=== PATIENT | male | born 1980 | race Caucasian/White ===

== ENCOUNTER 2018-02-23 18:45 | Emergency (ER) | payer OTHER ==
--- NOTE | 2018-02-23 19:44 | ERPHSYRPT ---
- History of Present Illness Time Seen by Provider: 02/23/18 19:25 Source: patient Exam Limitations: no limitations Patient Subjective Stated Complaint: PT states "On saturday I punched a wall and there was a nail in it and I hit the nail. It just started to bruise and I think I might have broken it. I was trying to take care of it by myself." Triage Nursing Assessment: Pt alert and oriented X 3, skin pwd. Pt ambualtes with an upright steady gait, able to speak in clear full sentences. PT right hand has small laceration noted to the knuckle of the pinky finger as well as bruising on lateral aspect of hand. Physician History: 38-year-old white male arrives with complaint of a puncture wound and laceration overlying his right fifth metacarpal phalangeal joint, laceration overlying his right metacarpal phalangeal joint pain in his right hand symptoms for 2 days. Patient states he became angry and punched a wall apparently hit a nail. He states he put superglue on the laceration. He states he is having pain in his right hand. . Past medical history includes anxiety, depression. Past surgical history includes appendectomy Occurred: days ago (2 days ago) Method of Injury: direct blow (punched a wall hitting a nail) Quality: constant Severity of Pain-Max: moderate Severity of Pain-Current: mild Extremities Pain Location: hand: right (overlying right fifth mcp joint dorsally ) Associated Symptoms: other (Pain right hand, laceration right hand) Allergies/Adverse Reactions: No Known Drug Allergies Allergy (Verified 02/23/18 18:55) Hx Tetanus, Diphtheria Vaccination/Date Given: Yes Hx Influenza Vaccination/Date Given: No Hx Pneumococcal Vaccination/Date Given: No Immunizations Up to Date: Yes - Review of Systems Constitutional: No Fever, No Chills Eyes: No Symptoms Ears, Nose, & Throat: No Symptoms Respiratory: No Cough, No Dyspnea Cardiac: No Chest Pain, No Edema, No Syncope Abdominal/Gastrointestinal: No Abdominal Pain, No Nausea, No Vomiting, No Diarrhea Genitourinary Symptoms: No Dysuria Musculoskeletal: Other (right hand pain) Skin: Other (puncture wound overlying right metacarpal phalangeal joint #5, laceration right hand overlying right metacarpal phalangeal joint #5) Neurological: No Dizziness, No Focal Weakness, No Sensory Changes Psychological: No Symptoms Endocrine: No Symptoms All Other Systems: Reviewed and Negative - Past Medical History Pertinent Past Medical History: Yes Neurological History: No Pertinent History ENT History: No Pertinent History Cardiac History: No Pertinent History Respiratory History: No Pertinent History Endocrine Medical History: No Pertinent History Musculoskeletal History: No Pertinent History GI Medical History: No Pertinent History History: No Pertinent History Psycho-Social History: Anxiety, Depression Male Reproductive Disorders: No Pertinent History - Past Surgical History Past Surgical History: No Neuro Surgical History: No Pertinent History Cardiac: No Pertinent History Other Surgical History: appendectomy - Social History Smoking Status: Current every day smoker How long have you smoked: 20 years Exposure to second hand smoke: Yes Drug Use: none Patient Lives Alone: Yes - Nursing Vital Signs Nursing Vital Signs: Initial Vital Signs Temperature 98.8 F 02/23/18 18:50 Pulse Rate 87 02/23/18 18:50 Respiratory Rate 16 02/23/18 18:50 Blood Pressure 134/74 02/23/18 18:50 O2 Sat by Pulse Oximetry 98 02/23/18 18:50 Pain Scale Pain Intensity 0 - Physical Exam General Appearance: alert Eyes, Ears, Nose, Throat Exam: moist mucous membranes Neck Exam: non-tender, supple Cardiovascular/Respiratory Exam: chest non-tender, normal breath sounds, regular rate/rhythm, no respiratory distress Abdominal Exam: non-tender, No guarding Back Exam: normal inspection, No vertebral tenderness Shoulder Exam: normal inspection, non-tender, no evidence of injury, normal ROM Elbow/Forearm Exam: normal inspection, non-tender, no evidence of injury, normal ROM Wrist Exam: normal inspection, non-tender, no evidence of injury, normal ROM, No limited ROM Hand Exam: No normal inspection (Puncture wound overlying right fifth mcp joint #5 dorsally, also small flap laceration overlying right fifth MCP joint full range of motion right hand. Good capillary refill right fingers, sensation intact right fingers) DTR - Upper Extremity Exam: tricep (R): 2+, tricep (L): 2+ Neuro/Tendon Exam: normal sensation, normal motor functions Mental Status Exam: alert, oriented x 3, cooperative Skin Exam: other (puncture wound and 1.5 cm flap laceration overlying right dorsal 5th mcp joint) SpO2 Interpretation: normal (98%) SpO2: 98 Oxygen Delivery: Room Air - Course Nursing assessment & vital signs reviewed: Yes - Radiology Exams Right Hand X-ray Interpretation: Interpreted by me (no fractures or subluxation) Ordered Tests: Active Orders 24 hr Category Date Time Status Wound Care STAT Care 02/23/18 19:32 Active HAND (MINIMUM 3 VIEWS) Stat Exams 02/23/18 19:31 Taken Medication Summary Discontinued Medications Generic Name Dose Route Start Last Admin Trade Name Sarika PRN Reason Stop Dose Admin Amoxicillin/Clavulanate Potassium 500 mg 02/23/18 20:14 Augmentin 500-125 Tablet PO 02/23/18 20:15 STAT ONE - Progress Progress: improved Progress Note: 02/23/18 19:44 This is a 38-year-old white male he arrives with complaint of a puncture wound in the flap laceration overlying his right fifth dorsal MCP joint. Patient apparently punched a wall 2 days ago striking a nail he initially superglue D area he states today he was noticing that the area appear to be somewhat soft in the shower. On physical examination patient has mild edema to his right hand proximal to the right fifth MCP joint tenderness with palpation on the proximal right hand he has full range of motion to the right hand sensation is intact to all fingers there are good capillary refill to all fingers. Will go ahead and get an x-ray of the patient's right hand anticipate Augmentin. Do not plan on suturing the puncture wound closed Will have nurse apply Steri- Strip to the flap secondary to the age of the presentation of the wound. - Departure Time of Disposition: 20:17 Departure Disposition: Home Clinical Impression: laceration delayed presentation Puncture wound of right hand Qualifiers: Encounter type: initial encounter Foreign body presence: without foreign body Qualified Code(s): S61.431A - Puncture wound without foreign body of right hand , initial encounter Contusion of right hand Qualifiers: Encounter type: initial encounter Qualified Code(s): S60.221A - Contusion of right hand, initial encounter Condition: Fair Critical Care Time: No Referrals: LINDSEY REDD MD [Primary Care Provider] - Additional Instructions: Return home. Augmentin 500 mg orally 3 times a day for 10 days. Advil 2-3 tablets orally every 6 hours as needed for pain for up to 5 days. Follow-up with your family doctor. Return for acute distress or for severe symptoms. keep area clean and dry Prescriptions: Amox Tr/Potass Clav. 500 mg [Augmentin 500-125 Tablet] 1 tab PO TID #30 tablet
[2018-02-23] MEDS ORDERED: Augmentin 500-125 Tablet PO ONE (20:14)
[2018-02-23] MEDS ORDERED: Augmentin 500-125 Tablet ONE (20:38)
[2018-02-23 20:51] VITALS: BP 136/82; PULSE 78; O2SAT 99
--- NOTE | 2018-02-24 08:48 | XRAY ---
Indication: Pain following punching injury. Comparison: None 3 views of the right hand obtained. No bony, articular, or soft tissue abnormalities.
== END 2018-02-23 20:49 | disposition home or self-care (01) ==
LOC: ED 18:45
DX: S61.431A Puncture wound without foreign body of right hand, initial encounter (principal); S60.221A Contusion of right hand, initial encounter; W22.01XA Walked into wall, initial encounter; Y93.89 Activity, other specified
CPT/HCPCS: 73130; 99283; A9270-GY

== ENCOUNTER 2020-08-28 12:33 | Emergency (ER) | payer OTHER ==
--- NOTE | 2020-08-28 12:37 | ERPHSYRPT ---
- History of Present Illness Time Seen by Provider: 08/28/20 12:36 Source: patient Exam Limitations: no limitations Physician History: This is a 40-year-old white male who is under a lot of stress recently including a friend who committed suicide a few days ago. Patient is having trouble sleeping. In addition, patient found a right testicular mass this morning and he is concerned about cancer. He denies pain. He denies penile discharge. He has purposely been eating better and changing his lifestyle and has lost 30 pounds. His primary care physician is Dr. Green. Patient has had a vasectomy in the past with the use of metal "ball clamps". Patient has not felt the mass in the last 4 years since his vasectomy. Timing/Duration: today Modifying Factors: Improves With: nothing Associated Symptoms: denies symptoms Allergies/Adverse Reactions: No Known Drug Allergies Allergy (Verified 08/28/20 12:46) Hx Tetanus, Diphtheria Vaccination/Date Given: Yes Hx Influenza Vaccination/Date Given: No Hx Pneumococcal Vaccination/Date Given: No Travel Risk - International Travel Have you traveled outside of the country in past 3 weeks: No - Coronavirus Screening Are you exhibiting any of the following symptoms?: No Close contact with a COVID-19 positive Pt in past 14-21 Days: No - Review of Systems Constitutional: No Symptoms Eyes: No Symptoms Ears, Nose, & Throat: No Symptoms Respiratory: No Symptoms Cardiac: No Symptoms Abdominal/Gastrointestinal: No Symptoms Genitourinary Symptoms: Other (Right testicular mass) Musculoskeletal: No Symptoms Skin: No Symptoms Neurological: No Symptoms Psychological: No Symptoms Endocrine: No Symptoms Hematologic/Lymphatic: No Symptoms Immunological/Allergic: No Symptoms All Other Systems: Reviewed and Negative - Past Medical History Pertinent Past Medical History: Yes Neurological History: No Pertinent History ENT History: No Pertinent History Cardiac History: No Pertinent History Respiratory History: No Pertinent History Endocrine Medical History: No Pertinent History Musculoskeletal History: No Pertinent History GI Medical History: No Pertinent History History: No Pertinent History Psycho-Social History: Anxiety, Depression Male Reproductive Disorders: No Pertinent History - Past Surgical History Past Surgical History: No Neuro Surgical History: No Pertinent History Cardiac: No Pertinent History Other Surgical History: appendectomy - Social History Smoking Status: Current every day smoker How long have you smoked: 20 years Exposure to second hand smoke: Yes Drug Use: none Patient Lives Alone: Yes - Nursing Vital Signs Nursing Vital Signs: Initial Vital Signs Temperature 98.3 F 08/28/20 12:36 Pulse Rate 95 H 08/28/20 12:36 Respiratory Rate 18 08/28/20 12:36 Blood Pressure 171/88 08/28/20 12:36 O2 Sat by Pulse Oximetry 98 08/28/20 12:36 Pain Scale Pain Intensity 0 - Physical Exam General Appearance: no apparent distress, alert, anxiety Eye Exam: PERRL/EOMI, eyes nml inspection Ears, Nose, Throat Exam: normal ENT inspection, moist mucous membranes Neck Exam: normal inspection, non-tender, supple, full range of motion Respiratory Exam: airway intact, No chest tenderness, No respiratory distress Cardiovascular Exam: regular rate/rhythm, normal heart sounds, normal peripheral pulses Gastrointestinal/Abdomen Exam: No tenderness Male Genitalia Exam: other (Right scrotal mass. Appears to be separate than the actual testicle. 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 Be there approximately 10 to 15 minutes prior to your appointment time at 7 AM or earlier if instructed to do so. Call Dr. Green's office at 9 AM and let them know that you have a right testicular mass and an ultrasound has been performed. In addition, discussed with them your other chronic health issue concerns including cardiac, blood pressure, anxiety and insomnia issues. Prescriptions: Lorazepam 0.5 mg [Ativan 0.5 MG] 0.5 mg PO QHS PRN #3 tablet MDD 1 PRN Reason: Insomnia
[2020-08-28 13:14] VITALS: BP 146/86; PULSE 98; O2SAT 97
== END 2020-08-28 13:29 | disposition home or self-care (01) ==
LOC: ED 12:33
DX: N50.89 Other specified disorders of the male genital organs (principal); G47.00 Insomnia, unspecified; F41.9 Anxiety disorder, unspecified
CPT/HCPCS: 99283

== ENCOUNTER 2020-10-24 16:17 | Emergency (ER) | payer OTHER ==
[2020-10-24 16:31] VITALS: O2SAT 99
[2020-10-24] MEDS ORDERED: DECADRON 10MG INJ. ONE (16:48)
[2020-10-24] MEDS: DECADRON 10MG INJ. PO ONE (16:49)
--- NOTE | 2020-10-24 16:52 | ERPHSYRPT ---
- History of Present Illness Time Seen by Provider: 10/24/20 16:30 Source: patient Exam Limitations: no limitations Patient Subjective Stated Complaint: Pt has had a sore throat since Saturday Triage Nursing Assessment: Pt brought self to the ER, hypertensive, rates throat pain as 3/10, painful to swallow, pt felt like he had a fever on Saturday, doesn't appear to be in any distress Physician History: Patient is a 40-year-old male presents to our emergency department with complaints of a sore throat. Symptoms started on October 21, 2020. Patient states his symptoms have been ongoing. Patient has some pain upon swallowing. No trismus. Patient tolerating oral secretions. Symptoms have been constant. Symptoms are mild to moderate in intensity. Pain currently rated 3 out of 10. Patient states that he experienced subjective fevers on Saturday. No measurable fever. Patient is fully vaccinated however he is concerned that he may have been exposed to Covid. 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 Dayanna ent requesting a Covid test. No associated headache. No photophobia. No neck pain. No cervical spine rigidity. No cough. No diarrhea no rash. Patient states is otherwise healthy. Patient voices no other complaints concerns at this time. Timing/Duration: day(s) (3 days) Severity: moderate Modifying Factors: Improves With: nothing Associated Symptoms: denies symptoms Allergies/Adverse Reactions: No Known Drug Allergies Allergy (Verified 10/24/20 16:31) Home Medications: No Reportable Medications [No Reported Medications] 10/24/20 [History] Hx Tetanus, Diphtheria Vaccination/Date Given: Yes Hx Influenza Vaccination/Date Given: No Hx Pneumococcal Vaccination/Date Given: No Travel Risk - International Travel Have you traveled outside of the country in past 3 weeks: No - Coronavirus Screening Are you exhibiting any of the following symptoms?: No Close contact with a COVID-19 positive Pt in past 14-21 Days: No - Vaccine Status Have you recieved a Covid-19 vaccination: Yes 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: [employer] - Review of Systems Constitutional: No Symptoms, No Fever, No Chills Eyes: No Symptoms Ears, Nose, & Throat: No Symptoms Respiratory: No Symptoms, No Cough, No Dyspnea Cardiac: No Symptoms, No Chest Pain, No Edema, No Syncope Abdominal/Gastrointestinal: No Symptoms, No Abdominal Pain, No Nausea, No Vomiting, No Diarrhea Genitourinary Symptoms: No Symptoms, No Dysuria Musculoskeletal: No Symptoms, No Back Pain, No Neck Pain Skin: No Symptoms, No Rash Neurological: No Symptoms, No Dizziness, No Focal Weakness, No Sensory Changes Psychological: No Symptoms Endocrine: No Symptoms Hematologic/Lymphatic: No Symptoms Immunological/Allergic: No Symptoms All Other Systems: Reviewed and Negative - Past Medical History Pertinent Past Medical History: Yes Neurological History: No Pertinent History ENT History: No Pertinent History Cardiac History: No Pertinent History Respiratory History: No Pertinent History Endocrine Medical History: No Pertinent History Musculoskeletal History: No Pertinent History GI Medical History: No Pertinent History History: No Pertinent History Psycho-Social History: Anxiety, Depression Male Reproductive Disorders: No Pertinent History - Past Surgical History Past Surgical History: Yes Neuro Surgical History: No Pertinent History Cardiac: No Pertinent History Gastrointestinal: Appendectomy Other Surgical History: . - Social History Smoking Status: Former smoker How long have you smoked: 20 years Exposure to second hand smoke: No Drug Use: marijuana Patient Lives Alone: Yes - Nursing Vital Signs Nursing Vital Signs: Initial Vital Signs Temperature 97.4 F 10/24/20 16:24 Pulse Rate 72 10/24/20 16:24 Blood Pressure 150/89 10/24/20 16:24 O2 Sat by Pulse Oximetry 99 10/24/20 16:24 Pain Scale Pain Intensity 3 - Physical Exam General Appearance: no apparent distress, alert Eye Exam: PERRL/EOMI, eyes nml inspection Ears, Nose, Throat Exam: normal ENT inspection, TMs normal, moist mucous membranes, pharyngeal erythema, other (No tonsillar exudate. Uvula at midline. 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 No obvious lymphadenopathy. No coughing.) Neck Exam: normal inspection, non-tender, supple, full range of motion Respiratory Exam: normal breath sounds, lungs clear, airway intact, No respiratory distress, No diminished breath sounds, No rhonchi, No wheezing Cardiovascular Exam: regular rate/rhythm, normal heart sounds, normal peripheral pulses Gastrointestinal/Abdomen Exam: soft, normal bowel sounds, No tenderness, No mass Back Exam: normal inspection, normal range of motion, No CVA tenderness, No vertebral tenderness Extremity Exam: normal inspection, normal range of motion, pelvis stable Neurologic Exam: alert, oriented x 3, cooperative, normal mood/affect, sensation nml, No motor deficits Skin Exam: normal color, warm, dry, No rash Lymphatic Exam: No adenopathy SpO2 Interpretation: normal SpO2: 99 O2 Delivery: Room Air - Course Nursing assessment & vital signs reviewed: Yes Ordered Tests: Medication Summary Discontinued Medications Generic Name Dose Route Start Last Admin Trade Name Sarika PRN Reason Stop Dose Admin Dexamethasone Sodium Phosphate 10 mg 10/24/20 16:45 10/24/20 16:49 Decadron 10mg Inj. PO 10/24/20 16:46 10 mg STAT ONE Administration Dexamethasone Sodium Phosphate Confirm 10/24/20 16:48 Decadron 10mg Inj. Administered 10/24/20 16:49 Dose 10 mg .ROUTE .STEnlightened Lifestyle-MED ONE Lab/Rad Data: Laboratory Results 10/24/20 Range/Units 16:30 Group A Strep Antibody NOT DETECTED (NEGATIVE) - Progress Progress: improved Progress Note: Rapid strep ordered. Patient received a 10 mg dose of Decadron for pharyngeal pain and edema swelling. Upon patient's request we ordered a Covid test. 10/24/20 16:51 10/24/20 17:03 Rapid strep negative. Covid testing pending. We will discharge home. No indication for antibiotics. Patient received dose of Decadron in our ED. [id number] analgesics as needed. Patient agrees to follow-up with his primary care doctor within 48 hours for reevaluation. He voices no other complaints or concerns at this time. Counseled pt/family regarding: lab results, diagnosis, need for follow-up - Departure Departure Disposition: Home Clinical Impression: Pharyngitis, Sore throat (viral) Condition: Stable Critical Care Time: No Referrals: LINDSEY REDD MD [Primary Care Provider] - Additional Instructions: Discharge/Care Plan RONALDO MERCHANT was seen on 10/24/20 in the Emergency Room. The patient was counseled regarding Diagnosis,Lab results, Imaging studies, need for follow up and when to return to the Emergency Room. Prescriptions given: Discharge Note I have spoken with the patient and/or caregivers. I have explained the patient's condition, diagnosis and treatment plan based on the information available to me at this time. I have answered the patient's and/or caregiver's questions and addressed any concerns. The patient and/or caregivers have as good understanding of the patient's diagnosis, condition and treatment plan as can be expected at this point. The vital signs have been stable. The patient's condition is stable and appropriate for discharge from the emergency department. The patient will pursue further outpatient evaluation with the primary care physician or other designated or consulting physician as outlined in the discharge instructions. The patient and/or caregivers are agreeable to this plan of care and follow-up instructions have been explained in detail. The patient and/or caregivers have received these instruction. The patient/and or caregivers are aware that any significant change in condition or worsening of symptoms should prompt an immediate return to this or the closest emergency department or call 911.
[2020-10-24 17:15] VITALS: BP 130/83; PULSE 68
== END 2020-10-24 17:14 | disposition home or self-care (01) ==
LOC: ED 16:17
DX: J02.8 Acute pharyngitis due to other specified organisms (principal)
CPT/HCPCS: 87651; 99283; U0003; J1100

== ENCOUNTER 2020-11-04 13:50 | Emergency (ER) | payer OTHER ==
--- NOTE | 2020-11-04 13:59 | ERPHSYRPT ---
- History of Present Illness Time Seen by Provider: 11/04/20 13:58 Source: patient Exam Limitations: no limitations Physician History: Patient is a 40-year-old white male who presents with a complaint of a lesion on his right back near the tip of the scapula which was found by his chiropractor. He says it has been present for up to a year. He plays a guitar and the strap has been feeling strange in that area. Timing/Duration: worse (Slightly increasing in size) Quality: other (Tender) Severity: mild Location: extremities (Areas located at the tip of the right scapula) Possible Causes: no cause identified Associated Symptoms: swelling/mass/lumps Allergies/Adverse Reactions: No Known Drug Allergies Allergy (Verified 10/24/20 16:31) Home Medications: No Reportable Medications [No Reported Medications] 10/24/20 [History] Hx Tetanus, Diphtheria Vaccination/Date Given: Yes Hx Influenza Vaccination/Date Given: No Hx Pneumococcal Vaccination/Date Given: No Travel Risk - Vaccine Status Have you recieved a Covid-19 vaccination: Yes 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: [employer] - Review of Systems Constitutional: No Fever, No Chills Eyes: No Symptoms Ears, Nose, & Throat: No Symptoms Respiratory: No Cough, No Dyspnea Cardiac: No Chest Pain, No Edema, No Syncope Abdominal/Gastrointestinal: No Abdominal Pain, No Nausea, No Vomiting, No Diarrhea Genitourinary Symptoms: No Dysuria Musculoskeletal: No Back Pain, No Neck Pain Skin: Skin Lesions, No Rash Neurological: No Dizziness, No Focal Weakness, No Sensory Changes Psychological: No Symptoms Endocrine: No Symptoms All Other Systems: Reviewed and Negative - Past Medical History Pertinent Past Medical History: Yes Neurological History: No Pertinent History ENT History: No Pertinent History Cardiac History: No Pertinent History Respiratory History: No Pertinent History Endocrine Medical History: No Pertinent History Musculoskeletal History: No Pertinent History GI Medical History: No Pertinent History History: No Pertinent History Psycho-Social History: Anxiety, Depression Male Reproductive Disorders: No Pertinent History - Past Surgical History Past Surgical History: Yes Neuro Surgical History: No Pertinent History Cardiac: No Pertinent History Gastrointestinal: Appendectomy Other Surgical History: . - Social History Smoking Status: Former smoker How long have you smoked: 20 years Exposure to second hand smoke: No Drug Use: marijuana Patient Lives Alone: Yes - Nursing Vital Signs Nursing Vital Signs: Initial Vital Signs Temperature 97.8 F 11/04/20 13:55 Pulse Rate 84 11/04/20 13:55 Respiratory Rate 20 11/04/20 13:55 Blood Pressure 153/95 11/04/20 13:55 O2 Sat by Pulse Oximetry 98 11/04/20 13:55 Pain Scale Pain Intensity 0 - Physical Exam General Appearance: no apparent distress, alert Eye Exam: PERRL/EOMI, eyes nml inspection Ears, Nose, Throat Exam: normal ENT inspection, pharynx normal, moist mucous membranes Neck Exam: normal inspection, non-tender, supple, full range of motion Respiratory Exam: normal breath sounds, lungs clear, No respiratory distress Cardiovascular Exam: regular rate/rhythm, normal heart sounds Gastrointestinal/Abdomen Exam: soft, mass, No tenderness Back Exam: normal inspection, normal range of motion, No CVA tenderness, No vert ebral tenderness Extremity Exam: normal inspection, normal range of motion Neurologic Exam: alert, oriented x 3, cooperative, normal mood/affect, sensation nml, No motor deficits Skin Exam: normal color, warm, dry, other (3-4 diameter cystic feeling area at the tip of the right scapula. It feels cystic not solid.) SpO2 Interpretation: normal O2 Delivery: Room Air - Course Nursing assessment & vital signs reviewed: Yes - Radiology Ultrasound Exam Other Ultrasound: Other (Lesion on the tip of the right scapular area is consistent with a lipoma it is solid no fluid collections seen.) Ordered Tests: Active Orders 24 hr Category Date Time Status SOFT TISSUE HEAD/NECK [US] Stat Exams 11/04/20 15:46 Taken - Progress Progress: unchanged - Departure Departure Disposition: Home Clinical Impression: Lipoma of back Condition: Stable Critical Care Time: No Referrals: LINDSEY REDD MD [Primary Care Provider] - Instructions: Skin Lesion Removal (DC) Additional Instructions: Patient was given a list of surgeons to call to schedule removal of this lipoma
[2020-11-04 15:03] VITALS: BP 135/81; PULSE 77; O2SAT 99
--- NOTE | 2020-11-04 16:36 | XRAY ---
Indication: Right upper back mass. Two-dimensional targeted soft tissue ultrasound right upper back demonstrates a subcutaneous well-circumscribed mass measuring 4.1 x 0.9 x 3.6 cm with echogenicity isoechoic to subcutaneous fat and no abnormal color flow favoring lipoma. No other sulci cystic mass or abnormal fluid collection.
== END 2020-11-04 15:57 | disposition home or self-care (01) ==
LOC: ED 13:50
DX: D17.1 Benign lipomatous neoplasm of skin and subcutaneous tissue of trunk (principal)
CPT/HCPCS: 76536; 99283